=== PATIENT | female | born 1975 | race Caucasian/White ===

== ENCOUNTER 2018-10-23 11:39 | Emergency (ER) | payer OTHER ==
[~2018-10-23] VITALS: Ht 157.5 cm; Wt 70.3 kg
[2018-10-23 11:39] VITALS: Ht 157.5 cm; Wt 70.3 kg
[2018-10-23 17:42] VITALS: BP 110/60
== END 2018-10-23 17:43 ==
LOC: ED 11:39
DX: J45.901 Unspecified asthma with (acute) exacerbation (principal); R04.2 Hemoptysis; I10 Essential (primary) hypertension; F31.9 Bipolar disorder, unspecified; F17.210 Nicotine dependence, cigarettes, uncomplicated
CPT/HCPCS: 99406; J2930; J7613; J7644